=== PATIENT | female | born 1965 | race Caucasian/White ===

== ENCOUNTER 2019-08-22 11:43 | Emergency (ER) | payer BC ==
[~2019-08-22] VITALS: Ht 170.2 cm; Wt 104.3 kg
[~2019-08-22 11:43] MED LIST: ADVIL200 M1 PO; APPLE CIDER VI1 EAC1 PO; ARNUITY ELLIP200 MCG PO; ATORVASTATIN CA20 MG PO; CEFUROXIME500 MG PO; CENTRUM SILVER1 EAC3 PO; CIPRO500 MG PO; DICYCLOMINE HCL20 MG PO; FLONASE; HYDROCODONE/AP1 EAC1 PO; IPRAT-ALBUT 0.5-3 ML INH; LEVOTHYROXINE75 MCG PO; MIRTAZAPINE30 MG PO; PANTOPRAZOLE SO40 MG PO; POTASSIUM PO; PRISTIQ50 MG PO; SERTRALINE HCL50 MG PO; SYMBICORT 16010.2 GM INH; TOPIRAMATE25 MG PO; TRELEGY ELLIPT1 EACH INH; Z FISH OIL PO; Z.0.ESTRADIOL1 MG IM; Z.0.FLONASE16 GM NS; Z.0.GEMFIBROZIL600 M PO; Z.0.NEXIUM40 MG PO; Z.0.ONE-A-DAY WOME1 PO; Z.0.SINGULAIR10 MG PO; Z.0.SPIRONOLACTONE25 PO; Z.0.SUCRALFATE1 GM PO; Z.0.SUMATRIPTAN SU10 PO; Z.0.TOPIRAMATE50 MG PO; Z.0.ZOLPIDEM TARTRA1 PO
[2019-08-22] MEDS ORDERED: ALBUTEROL SULF 0.083% NEB SOLN 3 ML NEB NEB STA (13:05)
[2019-08-22] MEDS ORDERED: IPRATROPIUM BROMIDE 0.02% 2.5 ML NEB NEB STA (13:05)
[2019-08-22] MEDS ORDERED: DEXAMETHASONE SOD PHOS 10 MG/1 ML VIAL IM ONE (13:45)
--- NOTE | 2019-08-22 13:59 | Diagnostic Imaging Report ---
EXAM: CHEST SINGLE (PORTABLE) DATE: 08/22/2019 11:46 AM INDICATION: Cough, chest pain COMPARISON: None FINDINGS: The trachea is midline. The lungs are symmetrically expanded without evidence for large focal consolidation, pneumothorax, or significant pleural effusion. The cardiomediastinal silhouette and pulmonary vasculature are within normal limits. No acute osseous abnormality is identified. The surrounding soft tissues are unremarkable. IMPRESSION: No acute cardiopulmonary process identified. Signed by: Dr. Inocente Alvarado MD on 08/22/2019 1:56 PM
== END 2019-08-22 14:43 | disposition home or self-care (01) ==
LOC: ER 11:43
DX: R05 Cough (principal); R06.2 Wheezing; J20.9 Acute bronchitis, unspecified; J44.9 Chronic obstructive pulmonary disease, unspecified; E78.5 Hyperlipidemia, unspecified; F41.9 Anxiety disorder, unspecified; G47.30 Sleep apnea, unspecified; I34.1 Nonrheumatic mitral (valve) prolapse
CPT/HCPCS: 71045; 94760; 99283; J1100

== ENCOUNTER → 2020-01-16 | Outpatient (CLI) | payer BC ==
--- NOTE | 2020-01-16 13:51 | Diagnostic Imaging Report ---
EXAMINATION: CHEST 2 VIEWS INDICATION: Cough. Bronchitis. ^[id number] ^[id number] ^BRONCHITIS COMPARISON: 08/22/2019 FINDINGS: TUBES and LINES: None. LUNGS: Lungs are well inflated. Mild perihilar peribronchial hazy opacity could be due to bronchitis. No focal lung consolidation. PLEURA: No pleural effusion or pneumothorax. HEART AND MEDIASTINUM: The cardiomediastinal silhouette is unremarkable. BONES AND SOFT TISSUES: No acute osseous lesion. Soft tissues are unremarkable. UPPER ABDOMEN: No free air under the diaphragm. IMPRESSION: Mild perihilar peribronchial hazy opacity could be due to bronchitis. No focal lung consolidation. Signed by: Dr. Tristen Tee M.D. on 01/16/2020 1:48 PM
== END ==
LOC: RAD 13:31
DX: R05 Cough (principal)
CPT/HCPCS: 71046

== ENCOUNTER → 2021-12-30 | Outpatient (CLI) | payer BC | LOC: RAD 12:00 | DX: M25.511 Pain in right shoulder (principal) ==

== ENCOUNTER → 2024-08-08 | Day surgery (SDC) | payer BC ==
[2024-08-02 11:26] LABS: BASOPHILS # (AUTO) 0.1 (0.0-0.1); BASOPHILS % 0.5 % (0.0-1.0); EOSINOPHILS # (AUTO) 0.1 (0.0-0.4); EOSINOPHILS % 1.5 % (0.0-6.0); HEMATOCRIT 44.7 % (34.2-44.1); HEMOGLOBIN 14.6 g/dL (12.0-16.0); LYMPHOCYTES # (AUTO) 2.7 (1.0-3.2); LYMPHOCYTES % 28.3 % (18.0-39.1); MEAN CORPUSCULAR HEMOGLOBIN 30.5 pg (28-32); MEAN CORPUSCULAR HGB CONC 32.7 g/dL (31-35); MEAN CORPUSCULAR VOLUME 93.3 fL (81-99); MONOCYTES # (AUTO) 0.4 (0.2-0.8); MONOCYTES % 4.3 % (4.4-11.3); NEUTROPHILS # (AUTO) 6.2 (2.1-6.9); NEUTROPHILS % 64.9 % (38.7-80.0); PLATELET COUNT 326 x10e3/uL (140-360); RED BLOOD COUNT 4.79 x10e6/uL (3.6-5.1); RED CELL DISTRIBUTION WIDTH 13.2 % (11.7-14.4); WHITE BLOOD COUNT 9.56 x10e3/uL (4.8-10.8)
[~2024-08-08] MED LIST changes: +DICYCLOMINE HCL10 MG PO; +EPIPEN INJ; +FENTANYL CITRATE/PF 100MCG/2 ML INJ ONE; +FLONASE ALLERG9.9 ML INH; +GLUCAGON FOR INJ 1 MG VIAL ONE; +HYOSCYAMINE SULFATE 0.5 MG/ML INJ ONE; +LACTATED RINGER'S 1,000 ML ONE; +LIDOCAINE HCL 2% LOCAL INJ 5 ML SDV VIAL INJ ONE; +MEDROL4 M2 PO; +OMEPRAZOLE40 MG PO; +ORPHENADRINE C100 MG PO; +PROPOFOL IV EMULSION 10 MG/ML 20 ML VIAL ONE; +PROPOFOL IV EMULSION 50 ML IV ONE; +TRAZODONE HCL100 MG PO; +TRELEGY ELLIPT1 EAC1 INH; +VENTOLIN HFA18 GM INH; +VITAMIN B121000 MCG PO; +VITAMIN B650 M1 PO; +VITAMIN D325 MCG PO; -Z.0.ESTRADIOL1 MG IM; +Z.0.ESTRADIOL1 MG PO
[2024-08-08 15:55] VITALS: TEMP 98.2
[2024-08-08 16:25] VITALS: BP 142/91; PULSE 73; RESP 14; O2SAT 100
== END | disposition home or self-care (01) ==
LOC: OR 12:04
PROVIDERS: ATTEND Internal Medicine Gastroenterology
DX: K29.70 Gastritis, unspecified, without bleeding (principal); D12.3 Benign neoplasm of transverse colon; K20.90 Esophagitis, unspecified without bleeding; K44.9 Diaphragmatic hernia without obstruction or gangrene; K21.9 Gastro-esophageal reflux disease without esophagitis; K57.30 Diverticulosis of large intestine without perforation or abscess without bleeding; K64.8 Other hemorrhoids; E78.5 Hyperlipidemia, unspecified; J44.9 Chronic obstructive pulmonary disease, unspecified; I34.1 Nonrheumatic mitral (valve) prolapse; E03.9 Hypothyroidism, unspecified; E66.9 Obesity, unspecified; M85.80 Other specified disorders of bone density and structure, unspecified site; Z71.89 Other specified counseling; F41.9 Anxiety disorder, unspecified; Z88.2 Allergy status to sulfonamides; Z88.6 Allergy status to analgesic agent; Z88.1 Allergy status to other antibiotic agents; Z88.0 Allergy status to penicillin; Z91.013 Allergy to seafood; Z01.810 Encounter for preprocedural cardiovascular examination; Z01.812 Encounter for preprocedural laboratory examination; Z79.899 Other long term (current) drug therapy; Z68.33 Body mass index [BMI] 33.0-33.9, adult; Z71.3 Dietary counseling and surveillance
CPT/HCPCS: 36415; 43239; 43450; 45380; 45385; 85025; 93005; J1610; J1980; J2003; J2470; J2704 ×2; J3010; J7121